=== PATIENT | female | born 1950 | race Caucasian/White ===

== ENCOUNTER 2020-12-28 06:05 | Observation (INO) ==
--- NOTE | 2020-12-04 14:58 | PAT Medication Instructions ---
Medication Instructions Date of Service December 04, 2020 Home Medications lisinopril 10 mg tablet (Zestril) 10 mg PO HS phenobarbital 32.4 mg tablet 32.4 mg PO QPM phenytoin sodium extended 100 mg capsule (Dilantin Extended) 100 mg PO HS quetiapine 25 mg tablet (Seroquel) 25 mg PO HS sertraline 20 mg/mL oral concentrate (Zoloft) 100 mg PO QAM acetaminophen 325 mg capsule (Tylenol) 650 mg PO QID PRN glucosamine-chondroitin 250 mg-200 mg tablet (Osteo Bi-Flex) 1 tab PO BID hydrocodone 5 mg-acetaminophen 325 mg tablet 1 tab PO Q6H PRN menthol 6 % topical pump spray (Stopain) 1 spray TOPICAL QID PRN omeprazole 20 mg capsule,delayed release 20 mg PO QAM STOP taking 2 weeks before surgery (or as soon as possible if surgery is within 2 weeks) glucosamine-chondroitin 250 mg-200 mg tablet (Osteo Bi-Flex) 1 tab PO BID STOP taking 24 hours before surgery menthol 6 % topical pump spray (Stopain) 1 spray TOPICAL QID PRN Take morning of surgery With a small sip of water, OTHERWISE NOTHING TO EAT OR DRINK AFTER MIDNIGHT: sertraline 20 mg/mL oral concentrate (Zoloft) 100 mg PO QAM acetaminophen 325 mg capsule (Tylenol) 650 mg PO QID PRN (okay to take up to 4 hours prior to surgery if needed) hydrocodone 5 mg-acetaminophen 325 mg tablet 1 tab PO Q6H PRN (okay to take up to 4 hours prior to surgery if needed) omeprazole 20 mg capsule,delayed release 20 mg PO QAM Take evening before surgery lisinopril 10 mg tablet (Zestril) 10 mg PO HS phenobarbital 32.4 mg tablet 32.4 mg PO QPM phenytoin sodium extended 100 mg capsule (Dilantin Extended) 100 mg PO HS quetiapine 25 mg tablet (Seroquel) 25 mg PO HS acetaminophen 325 mg capsule (Tylenol) 650 mg PO QID PRN (if needed) hydrocodone 5 mg-acetaminophen 325 mg tablet 1 tab PO Q6H PRN (if needed) Other Notes If you have any questions please call us at [phone] or [phone] or [phone] or [phone]
--- NOTE | 2020-12-06 13:28 | Anesthesiology Consultation ---
Date of Service December 06, 2020 Assessment & Plan (1) Encounter for pre-operative examination: Chart Review Chart Review: Acceptable Risk for Surgery (pending preop Covid testing ) and Patient seen in Pre Admission Testing Per [facility] appt on 12/06/20, patient denies any travel or large group activities. Patient wears mask in public. No known Covid infection in the past 90 days. Patient is vaccinated for Covid. No known Covid positive contacts or Covid related symptoms. Preop Covid testing scheduled 12/26/20= will await results. Educated on importance of self quarantining, social distancing and wearing mask in public both for the patient after Covid testing done Teaching & Discussion Pre-Anesthesia Teaching/Discussion Notes: Instructed NPO after midnight before surgery,except medications with 15 cc of water. Medication instructions provided according to the [facility] guidelines. History Surgery Operation Date: 12/28/20 10:20 Proposed Procedures p Left Anterior Total Hip Arthroplasty - Dominik Chase DO Height/Weight Height: 5 ft 3 in Weight: 66.8 kg Allergies Allergy/AdvReac Type Severity Reaction Status Date / Time Penicillins Allergy Intermediate rash Verified 11/30/20 10:30 mesalamine [From Asacol] AdvReac Intermediate caused Verified 11/30/20 10:30 worsening ulcerative colitis Medications Home Medications Medication Instructions Recorded Confirmed Last Taken lisinopril 10 mg tablet (Zestril) 10 mg PO HS 11/13/20 11/30/20 Unknown phenobarbital 32.4 mg tablet 32.4 mg PO QPM 11/13/20 11/30/20 Unknown phenytoin sodium extended 100 mg 100 mg PO HS cap 11/13/20 11/30/20 Unknown capsule (Dilantin Extended) quetiapine 25 mg tablet (Seroquel) 25 mg PO HS 11/13/20 11/30/20 Unknown sertraline 20 mg/mL oral 100 mg PO QAM ml 11/13/20 11/30/20 Unknown concentrate (Zoloft) acetaminophen 325 mg capsule 650 mg PO QID PRN 11/30/20 11/30/20 Unknown (Tylenol) glucosamine-chondroitin 250 mg-200 1 tab PO BID 11/30/20 11/30/20 Unknown mg tablet (Osteo Bi-Flex) hydrocodone 5 mg-acetaminophen 325 1 tab PO Q6H PRN 11/30/20 11/30/20 Unknown mg tablet menthol 6 % topical pump spray 1 spray TOPICAL QID PRN 11/30/20 11/30/20 Unknown (Stopain) omeprazole 20 mg capsule,delayed 20 mg PO QAM 11/30/20 11/30/20 Unknown release Past Medical History Medical History Depression GERD (gastroesophageal reflux disease) Well controlled and stable Hypertension Osteoarthritis Seizure LAST ONE 01/05/1985-([facility] AND [facility] MAL)-F/U PCP Ulcerative colitis Under good control Exercise / Class Metabolic Activity II 4-5 Yardwork/Stairs/Walk up hill (one flight of stairs - no chest pain or SOB ) Past Family History Family History Son Family history of diabetes mellitus Sister Family history of diabetes mellitus Sister Family history of diabetes mellitus Past Surgical History Surgical History History of colonoscopy History of esophagogastroduodenoscopy (EGD) History of hysterectomy TOTAL History of tonsillectomy Past Anesthesia History No Hx of Anesthesia Complications and No Family Hx of Anesthesia Complications History of PONV No Hx of PONV and No Hx of Motion Sickness Social History Smoking Status: Never smoker Do You Dip or Chew Tobacco: No Hx Alcohol Use: No Hx Substance Use: No substance use type: does not use Review of Systems Patient denies chest pain, shortness of breath, dyspnea on exertion, cough, wheezing, palpitations. No hx of stroke, ME, apnea/snoring. No hx of blood clots or blood transfusions Physical Exam Vital Signs VITALS BP 138/72 (manually) P 84 TEMP 98.5 SP02 97% RESP 16 Constitutional no acute distress ENMT Mouth: no TMJ clicking Thyromental Distance: < 3.5 Finger Breadths (3.0) Mallampati Class: II Neck + limited neck extension (mild ) Respiratory normal respiratory effort; no respiratory distress Auscultation: lungs clear to auscultation bilaterally; no wheezes Cardiovascular Rate/Rhythm: regular rate and regular rhythm Heart Sounds: no murmur Vessels: no carotid bruit Musculoskeletal Spine: no pain with cervical ROM Extremities: extremities normal to inspection Psychiatric Orientation: alert Lab Results Anesthesia Preop Results Results Anesthesia Widget: WBC 6.53 K/uL (4.8-10.8) 12/06/20 Hgb 13.9 g/dL (12.0-16.0) 12/06/20 Hct 39.2 % (37-47) 12/06/20 Plt 137 K/uL (130-400) 12/06/20 Na 138 mmol/L (136-145) 12/06/20 K 4.7 mmol/L (3.5-5.1) 12/06/20 Cl 108 mmol/L (98-107) H 12/06/20 CO2 26 mmol/L (21-32) 12/06/20 BUN 16 mg/dl (7-18) 12/06/20 Creat 0.69 mg/dl (0.6-1.2) 12/06/20 Glucose Level 78 mg/dl (70-99) 12/06/20 PT 11.0 Seconds (9.0-12.0) 12/06/20 PTT 22.5 Seconds (21.0-31.0) 12/06/20 INR 1.1 (0.9-1.1) 12/06/20 Blood Type O Positive 12/06/20 Antibody Screen NEGATIVE 12/06/20 Testing Electrocardiogram Date: 12/06/20 Findings: + NSR @ (77bpm) Normal EKG per cardio. Chest X-Ray Date: 12/06/20 Findings: + NAD Cardiomediastinal and hilar silhouettes are within normal limits. Calcified plaque the thoracic aorta. Hiatal hernia. No pneumothorax, pleural effusion, airspace consolidation or overt pulmonary edema. Mild biapical pleural- parenchymal scarring. Degenerative changes of the shoulders and spine. Sigmoidal thoracolumbar scoliosis.
--- NOTE | 2020-12-27 16:44 | History & Physical Report ---
Date of Service December 27, 2020 Assessment & Plan (1) Osteoarthritis of left hip: We will proceed with a left anterior hip replacement. Postoperatively she will be started on aspirin for DVT prophylaxis and kept overnight in the hospital for postoperative medical management. She plans to go to [facility] in [place] upon discharge. History of Present Illness Chief Complaint: Osteoarthritis of the left hip. Primary Care Provider: Isaiah Tamayo is a pleasant 70-year-old female who is been dealing with chronic increasing left hip and groin pain. X-rays and clinical examination been diagnostic for advanced osteoarthritis of the left hip. After failing conservative treatment, she has elected proceed with a left anterior hip replacement surgery.. Allergies Allergy/AdvReac Type Severity Reaction Status Date / Time Penicillins Allergy Intermediate rash Verified 11/30/20 10:30 mesalamine [From Asacol] AdvReac Intermediate caused Verified 11/30/20 10:30 worsening ulcerative colitis Home Medications Medication Instructions Recorded Confirmed Type lisinopril 10 mg tablet (Zestril) 10 mg PO HS 11/13/20 11/30/20 History phenobarbital 32.4 mg tablet 32.4 mg PO QPM 11/13/20 11/30/20 History phenytoin sodium extended 100 mg 100 mg PO HS cap 11/13/20 11/30/20 History capsule (Dilantin Extended) quetiapine 25 mg tablet (Seroquel) 25 mg PO HS 11/13/20 11/30/20 History sertraline 20 mg/mL oral 100 mg PO QAM ml 11/13/20 11/30/20 History concentrate (Zoloft) acetaminophen 325 mg capsule 650 mg PO QID PRN 11/30/20 11/30/20 History (Tylenol) glucosamine-chondroitin 250 mg-200 1 tab PO BID 11/30/20 11/30/20 History mg tablet (Osteo Bi-Flex) hydrocodone 5 mg-acetaminophen 325 1 tab PO Q6H PRN 11/30/20 11/30/20 History mg tablet menthol 6 % topical pump spray 1 spray TOPICAL QID PRN 11/30/20 11/30/20 History (Stopain) omeprazole 20 mg capsule,delayed 20 mg PO QAM 11/30/20 11/30/20 History release Past Med/Surg History Medical History Depression GERD (gastroesophageal reflux disease) Well controlled and stable Hypertension Osteoarthritis Seizure LAST ONE 01/05/1985-([facility] AND [facility] MAL)-F/U PCP Ulcerative colitis Under good control Surgical History History of colonoscopy History of esophagogastroduodenoscopy (EGD) History of hysterectomy TOTAL History of tonsillectomy Family History Son Family history of diabetes mellitus Sister Family history of diabetes mellitus Sister Family history of diabetes mellitus Social History Smoking Status: Never smoker Second Hand Exposure: Yes (SON USED TO SMOKE/MOTHER SMOKED); Hx Alcohol Use: No Hx Substance Use: No Preferred Language: Ukrainian Communication Ability: Effective Educational Audiologist Required: No Beliefs That Will Affect Care: None Current Living Situation: Spouse and Family current occupational status: retired Feels Safe at Home: Yes Assistive Devices: Cane and Glasses Review of Systems All systems reviewed & are unremarkable except as noted in HPI & below. Physical Exam On physical examination of the left hip, she has severe pain with range of motion of her hip. She has a very antalgic gait and uses a cane. Her left leg is shorter than her right.. Constitutional WD/WN, vitals as above Eyes PERRL, conjunctivae normal, anicteric sclerae ENMT external ear and nose normal, oropharynx normal Neck trachea midline, no thyromegaly Respiratory normal respiratory effort Cardiovascular RRR, no murmur, no edema Gastrointestinal (Abdomen) normal bowel sounds, soft, nontender, no hepatosplenomegaly Psychiatric A+Ox3, euthymic affect Results & Data Results & Data Laboratory Results . Diagnostic Findings X-rays of the left hip do show advanced osteoarthritis with joint space narrowing, osteophyte formation, and [id number] articulation. There is complete collapse of the femoral head.. PG Care Time/CCT Total # of Minutes Spent Total Time Spent with Patient: Total time spent is greater than 50% in coordination of care (as documented) at patient's floor/unit and/or counseling patient: Coding Level of Care Code None Diagnoses Osteoarthritis of left hip M16.12
[~2020-12-28 06:05] MED LIST: ACETAMINOPHEN 500 MG TAB PO SCH; FAMOTIDINE 20 MG TAB PO SCH; GABAPENTIN 300 MG CAP PO SCH; LR 500ML BOLUS, THEN 15ML/HR IV SCH; LR 60ML/HR IV SCH; ROPIVACAINE 0.5% HCL/PF 150 MG, BUPIVACAINE 0.75% MPF 20 ML, EPINEPHrine 30MG/30ML (OR ... INSTIL SCH; TRANEXAMIC ACID 1,000 MG **IV Intra-op IV SCH; TRANEXAMIC ACID 1,000 MG **IV Pre-op IV SCH; ceFAZolin 1000MG 1,000 MG/7.5 ML SYR IV SCH; dexAMETHasone 4 MG TAB PO SCH
--- NOTE | 2020-12-28 06:44 | History & Physical Bridge Note ---
Date of Service December 28, 2020 History & Physical Bridge Note I have examined the patient, reviewed the History & Physical and in the interval since the performance of the History & Physical I have noted the following changes of clinical significance: no changes noted
[2020-12-28] MEDS ORDERED: fentaNYL citrate 100 MCG/2 ML VIAL IV PRN (07:04)
[2020-12-28] MEDS ORDERED: ePHEDrine sulfate 50 MG/ML AMP IV PRN (07:04)
[2020-12-28] MEDS ORDERED: ATROPINE SULFATE 0.1 MG/ML 10ML SYR IV PRN (07:04)
[2020-12-28] MEDS ORDERED: ONDANSETRON INJ 2 MG/ML 2 ML VIAL IV PRN ×2 (07:04→12:21)
[2020-12-28] MEDS ORDERED: BUPIVACAINE 0.5 % 5 MG/1 ML PF 10ML VIAL ONE (07:16)
[2020-12-28] MEDS ORDERED: MIDAZOLAM HCL 1 MG/ML 2ML VIAL ONE ×2 (07:24)
[2020-12-28] MEDS ORDERED: LIDOCAINE 2% 2 ML VIAL/AMP(20MG/ML) INFIL ONE (07:25)
[2020-12-28] MEDS ORDERED: PROPOFOL IV EMULSION 10 MG/ML 20 ML VIAL IV ONE ×2 (07:25→10:17)
[2020-12-28] MEDS ORDERED: ORTHO JOINT ANESTHETIC ONE (08:29)
[2020-12-28] MEDS ORDERED: PHENYLEPHRINE HCL 10 MG/ML VIAL ONE (10:03)
[2020-12-28] MEDS ORDERED: PHENYLEPHRINE 100MCG/ML 5ML SYR ONE (10:03)
[2020-12-28] MEDS ORDERED: ePHEDrine sulfate 50 MG/ML SYR ONE (10:17)
--- NOTE | 2020-12-28 10:31 | Operative Report ---
PG Post Operative Report Pre & Post Diagnosis Operation Date: 12/28/20 08:30 Pre-Op Diagnosis: Degenerative Joint Disease Left Hip Post-Op Diagnosis: Degenerative Joint Disease Left Hip I identified the patient and participated in the time-out.: Yes Procedure Operation Date: 12/28/20 08:30 Actual Procedures p Left Anterior Total Hip Arthroplasty, Uncemented(Left) - Dominik Chase DO Surgeon Dominik Chase, Blueprint Machine Operator Dominik Donaldson PAC Estimated Blood Loss 200 Findings Consistent with Post-Op Diagnosis Specimens Left femoral head Complications none Disposition Disposition: Recovery Room Indications Belkis is a pleasant 70-year-old female who is been dealing with chronic increasing left hip and groin pain. X-rays and clinical examination are diagnostic for advanced osteoarthritis the left hip with complete collapse of the femoral head. After failing conservative treatment, she elected proceed with a left total hip arthroplasty. Description of Procedure Implants used I used a ZimmerBiomet total hip arthroplasty system with a size 0 high offset Avenir Complete stem, a 48 mm Osseoti cup with a 25mm screw and a 30 mm screw, an E1 polyethylene liner, a 32 mm ceramic head with a +7 neck. Belkis arrived at the hospital for the above procedure. She was seen in the preoperative holding area and the operative extremity was identified and signed. She was given a spinal anesthetic, a preoperative antibiotic, and TXA. She was then taken back to the operating room and laid on the table in the supine position. She was given basic sedation. The operative leg was secured to a Puristst leg positioner. The hip was then prepped and draped in sterile fashion. A timeout was done and the patient and the operative extremity was properly identified. An anterior approach was used. Dissection was taken down through the fascia and the tensor muscle belly was retracted laterally and the rectus was retracted medially. The circumflex vessels were identified and ligated. The capsule was then incised and tagged for later repair. The femoral neck was then cut and the femoral head was removed. The acetabulum was exposed. Time was spent doing a complete circumferential labral release. Sequential reaming of the acetabulum up to a size 47 reamer was done. Final reamings were done under fluoroscopy to ensure appropriate version. A Biomet 48 mm Osseoti cup was then impacted into place. I was not able to get a great press-fit. I got a very mild press-fit. At this point I decided to place 2 screws. A 30 mm and a 25 mm screw were placed. I was able to get excellent purchase with the screws. The E1 polyethylene liner was then snapped into place. Surrounding soft tissues were then injected with 100 cc of an orthopedic pain control cocktail. The proximal femur was then exposed. Sequential broaching up to a size 0 broach was done. Off that broach a size 32 head with a +7 neck was trialed. The hip was reduced and fluoroscopic images showed anatomic alignment of the implants in acceptable length. The broach was removed. The final size 0 Avenir Complete stem was then impacted into place. A ceramic 32 mm head with a +7 neck was then impacted onto the stem and the hip was reduced. Final fluoroscopic images showed anatomic alignment of the hip. The capsule was then closed with #1 Vicryl suture. A dilute betadyne lavage was then done for 3 minutes. The joint was then irrigated with normal saline solution. The fascia was closed with #1 PDS suture. Skin was closed with 2-0 Vicryl, ariel, and a Silverlon dressing. She was then transferred to a hospital bed and taken to the post anesthesia care unit in stable condition. She tolerated the procedure well. Dominik Donaldson PA-C, was present for the entire procedure. He was critical for patient positioning, prepping, draping, retraction exposure, wound closure and application of sterile dressing. I attest to the content of the Intraoperative Record and any orders documented therein. Any exceptions are noted below.
--- NOTE | 2020-12-28 10:50 | Fluoroscopy Report ---
FL hip LT 1V CLINICAL HISTORY: Left anterior total hip arthroplasty. COMPARISON STUDY: None. FLUOROSCOPY TIME: 52 seconds. FINDINGS: 2 fluoroscopic spot images of the left hip demonstrate a left total hip arthroplasty. The h ardware appears intact. No fracture or dislocation. IMPRESSION: Fluoroscopy provided for left total hip arthroplasty. ACT 112: Negative or not required by law. Electronically signed by: Tomasz Perez M.D. 12/28/2020 10:49 AM
--- NOTE | 2020-12-28 11:47 | XRay Report ---
AP PELVIS, CROSSTABLE LATERAL LEFT HIP History: Left total hip arthroplasty. Degenerative arthritis. Postop. FINDINGS: The patient is status post a left total hip arthroplasty. The hardware is intact. No fractu re or dislocation. Skin ariel are in place. IMPRESSION: Left total hip arthroplasty. No evidence for hardware complication. ACT 112: Negative or not required by law. Electronically signed by: Tomasz Perez M.D. 12/28/2020 11:45 AM
[2020-12-28] MEDS ORDERED: bisacodyL 10 MG SUPP PR PRN (12:21)
[2020-12-28] MEDS ORDERED: HYDROmorphone INJ 0.5 MG/0.5 ML SYR IV PRN (12:21)
[2020-12-28] MEDS ORDERED: MAGNESIUM HYDROXIDE SUSP 30 ML UDC PO PRN (12:21)
[2020-12-28] MEDS ORDERED: oxyCODONE HCL IR 5 MG TAB (IMMEDIATE RELEASE) PO PRN (12:21)
[2020-12-28] MEDS ORDERED: NALOXONE HCL 0.4 MG/1 ML VIAL/CARP IV PRN (12:21)
[2020-12-28] MEDS ORDERED: METOCLOPRAMIDE HCL INJ 5 MG/ML 2 ML VIAL IV PRN (12:21)
[2020-12-28] MEDS ORDERED: [UNRECOGNIZED DRUG - REMARK] TOP PRN (12:21)
[2020-12-28] MEDS: SODIUM CHLORIDE 0.9% 1000ML 1,000 ML IV SCH ×2 (13:06→23:32)
[2020-12-28] MEDS: KETOROLAC TROMETHAMINE 15 MG/ML VIAL IV SCH ×3 (13:06→23:38)
--- NOTE | 2020-12-28 13:53 | Anesthesiology Progress Note ---
Date of Service December 28, 2020 Anesthesia Post Procedure Vital Signs Vital Signs: Temp Pulse Pulse Resp BP Pulse Ox 12/28/20 12:59 97.3 F L 87 16 94/59 L 96 12/28/20 12:24 97.3 F L 90 18 100/61 97 12/28/20 11:55 97.7 F 90 16 94/59 L 94 12/28/20 11:45 90 17 92/46 L 95 12/28/20 11:35 86 17 102/46 L 95 12/28/20 11:25 97.7 F 90 17 99/50 L 94 12/28/20 11:15 97 H 15 98/49 L 96 12/28/20 11:05 90 19 103/47 L 94 12/28/20 10:55 100 H 15 92/47 L 96 12/28/20 10:45 98.8 F 78 16 132/56 L 97 12/28/20 06:39 98.2 F 85 18 131/71 98 Pain Intensity Left Hip: Pain Intensity: 0 Transfer of Care Handoff Completed per policy Notes Mental Status: alert / awake / arousable and participated in evaluation Patient Amnestic to Procedure: Yes Nausea / Vomiting: adequately controlled Pain: adequately controlled Airway Patency, RR, SpO2: stable & adequate BP & HR: stable & adequate Hydration State: stable & adequate Neuraxial Anesthesia: was administered and sensory block is resolving Anesthetic Complications: no major complications apparent and Pt Satisfied with anesthetic care
[2020-12-28] MEDS: ACETAMINOPHEN 500 MG TAB PO SCH ×2 (16:01→23:39)
[2020-12-28] MEDS: ceFAZolin 2000MG 2,000 MG/15 ML SYR IV SCH (19:19)
[2020-12-28] MEDS: ASPIRIN 81 MG ECTAB PO SCH (20:25)
[2020-12-28] MEDS: SENNA 8.6 MG TAB PO SCH (20:25)
[2020-12-28] MEDS: lisinopril 10 MG TAB PO SCH (20:26)
[2020-12-28] MEDS: QUEtiapine FUMARATE 25 MG TABLET PO SCH (20:26)
[2020-12-28] MEDS: DOCUSATE SODIUM 100 MG CAP PO SCH (20:26)
[2020-12-28] MEDS: PHENYTOIN SODIUM ER 100 MG CAP PO SCH (20:26)
[2020-12-29] MEDS: ceFAZolin 2000MG 2,000 MG/15 ML SYR IV SCH (04:23)
[2020-12-29] MEDS: KETOROLAC TROMETHAMINE 15 MG/ML VIAL IV SCH ×4 (05:11→23:23)
--- NOTE | 2020-12-29 07:47 | Orthopedic Progress Note ---
Date of Service December 29, 2020 Assessment & Plan (1) Status post left hip replacement: Overall she is doing fairly well. She is on aspirin for DVT prophylaxis. She will be seen by physical therapy today for ambulation and range of motion exercises. We will keep her in the hospital today for pain control and therapy. I will see her tomorrow morning and plan to send her home tomorrow. Subjective Belkis was seen and examined at bedside this morning. Overall she is doing very well. She is not having much pain in the left hip. She has been up and ambulating a little bit to the bathroom. She has no other complaints.. Review of Systems All systems reviewed & are unremarkable except as noted in HPI & below. Physical Exam On physical examination of the left hip, the dressing is clean and dry. Her leg lengths are equal. She has active dorsiflexion plantarflexion of her left ankle.. Results & Data Results & Data Laboratory Results . Diagnostic Findings Postoperative x-rays of the left hip show the prosthesis to be in anatomic alignment without any evidence of fracture, dislocation, or loosening. PG Care Time/CCT Total # of Minutes Spent Total Time Spent with Patient: Total time spent is greater than 50% in coordination of care (as documented) at patient's floor/unit and/or counseling patient: Coding Level of Care Code 79594 Post Operative Follow-Up Diagnoses Status post left hip replacement Z96.642
[2020-12-29] MEDS ORDERED: dexAMETHasone 4 MG TAB PO SCH (08:00)
[2020-12-29] MEDS: ACETAMINOPHEN 500 MG TAB PO SCH ×3 (08:21→23:22)
[2020-12-29] MEDS: MULTIVITAMIN TAB PO SCH (08:22)
[2020-12-29] MEDS: DOCUSATE SODIUM 100 MG CAP PO SCH ×2 (08:22→20:50)
[2020-12-29] MEDS: PANTOprazole 40 MG TAB PO SCH (08:22)
[2020-12-29] MEDS: SERTRALINE HCL 100 MG TABLET PO SCH (08:22)
[2020-12-29] MEDS: ASPIRIN 81 MG ECTAB PO SCH ×2 (08:22→20:50)
[2020-12-29] MEDS: lisinopril 10 MG TAB PO SCH (20:50)
[2020-12-29] MEDS: PHENYTOIN SODIUM ER 100 MG CAP PO SCH (20:51)
[2020-12-29] MEDS: SENNA 8.6 MG TAB PO SCH (20:51)
[2020-12-29] MEDS: QUEtiapine FUMARATE 25 MG TABLET PO SCH (21:03)
[2020-12-30] MEDS: KETOROLAC TROMETHAMINE 15 MG/ML VIAL IV SCH (05:34)
[2020-12-30 07:41] VITALS: BP 112/65; PULSE 85; TEMP 97.5; O2SAT 99
[2020-12-30] MEDS: DOCUSATE SODIUM 100 MG CAP PO SCH (07:57)
[2020-12-30] MEDS: ASPIRIN 81 MG ECTAB PO SCH (07:57)
[2020-12-30] MEDS: ACETAMINOPHEN 500 MG TAB PO SCH (07:57)
[2020-12-30] MEDS: SERTRALINE HCL 100 MG TABLET PO SCH (07:57)
[2020-12-30] MEDS: PANTOprazole 40 MG TAB PO SCH (07:57)
[2020-12-30] MEDS: MULTIVITAMIN TAB PO SCH (07:57)
--- NOTE | 2020-12-30 08:05 | Orthopedic Progress Note ---
Date of Service December 30, 2020 Assessment & Plan (1) Status post left hip replacement: Overall she doing very well. She denies any much pain in the left hip. She can be seen by physical therapy today for ambulation and range of motion exercises. She can be discharged to home later today. She will follow-up with orthopedics in 2 weeks. Kristi Tamayo was seen and examined at bedside this morning. Overall she doing very well. She says she is not having much pain in the left hip. She participated well yesterday with physical therapy. She has no complaints.. Review of Systems All systems reviewed & are unremarkable except as noted in HPI & below. Physical Exam On physical examination of her left hip, her leg lengths are equal. Her dressing is clean and dry. She is neurovascularly intact.. Results & Data Results & Data Laboratory Results . Diagnostic Findings . PG Care Time/CCT Total # of Minutes Spent Total Time Spent with Patient: Total time spent is greater than 50% in coordination of care (as documented) at patient's floor/unit and/or counseling patient: Coding Level of Care Code 87553 Post Operative Follow-Up Diagnoses Status post left hip replacement Z96.642
--- NOTE | 2020-12-30 08:07 | Discharge Summary ---
Date of Service December 30, 2020 Admission HPI (Per Admitting) Belkis is a pleasant 70-year-old female who is been dealing with chronic increasing left hip and groin pain. X-rays and clinical examination been diagnostic for advanced osteoarthritis of the left hip. After failing conservative treatment, she has elected proceed with a left anterior hip replacement surgery.. Admission Exam (Per Admitting) On physical examination of the left hip, she has severe pain with range of motion of her hip. She has a very antalgic gait and uses a cane. Her left leg is shorter than her right.. Principal Diagnosis Same as "Discharge Diagnosis" noted below under Discharge Instructions. Discharge Data Procedures Performed Operation Date: 12/28/20 08:30 Actual Procedures p Left Anterior Total Hip Arthroplasty, Uncemented(Left) - Dominik Chase DO Ordered Studies 12/28/20 08:30 FL hip LT 1V Routine Hospital Course (1) Status post left hip replacement: On December 28, 2020 Heidi arrived at [facility] and underwent a left hip replacement without complication. She had a spinal anesthetic. Postoperatively she was started on aspirin for DVT prophylaxis and transferred to the general orthopedic floors. Her hospital course was uneventful. On postop day #1 her vital signs were stable and her pain was well controlled. She was able to participate well with physical therapy doing ambulation and range of motion exercises. On postop day #2 she continued to do well. She was seen 1 more time by physical therapy. She was then discharged home. She will follow-up with orthopedics in 2 weeks. PG Care Time/CCT Total # of Minutes Spent Total Time Spent with Patient: Total time spent is greater than 50% in coordination of care (as documented) at patient's floor/unit and/or counseling patient: Discharge Plan Discharge Items Patient Disposition: Home - Home Health Services Reason For Visit: DJD Left Hip Discharge Diagnosis: Left hip replacement Activity: As commented below Non-emergency contact: Surgeon Call non-emergency contact if: your wound has increased redness and your wound has increased drainage Follow-up/Referrals: Isaiah Gudino [Primary Care Provider] - Diet: Regular Addtl Attending Provider Instructions: Activity and Therapy Recommendations: * If you are using [facility] then therapy will be provided at your home until they feel you have accomplished all of your goals. * If you are using [facility] then Physical Therapy will be provided until they feel you are ready to start Outpatient Physical Therapy. * If you are not using home therapy then Outpatient Physical Therapy should start about 3-5 days from your day of surgery. Therapy will last about 6-10 weeks * You were shown a series of exercises in the hospital. Do these exercises three times each day including the exercises you were shown in physical therapy. * Get up and walk several times each day.~ For the first four weeks, try not to stand or walk for more than one hour at a time. If you do stand or walk for more than one hour, you will not hurt anything, but your leg will likely swell.~~ * As you feel comfortable, you may change from the walker or crutches to a cane and~then to independent walking. Medications: * Narcotic You will likely be sent home from the hospital with a prescription for the narcotic pain medication that worked best throughout your stay. * Aspirin Most patients will be required to take Aspirin 81mg twice a day for 6 weeks after surgery. This is obtained [id number] and a prescription is not necessary. * Other medications may be prescribed for specific circumstances. If you have any questions, please call the office at . * Resume previous home medications unless otherwise instructed TEDs/Elastic Stockings: The white elastic stockings help limit swelling and prevent blood clots from forming in your legs. The more you wear them, the more they work. Wear them for six weeks. Dressing Care: Leave the Silverlon dressing in place for 7 days. After 7 days you may remove the dressing. If the incision is not draining then you may leave the ariel open to air. If there is a little bit of drainage or if the ariel are getting stuck on your clothing then cover the incision with a dry dressing. The ariel will be removed at your 2 week follow-up appointment. Showering: You may shower with the Silverlon dressing in place. Do not let the shower spray hit the dressing directly. Pat the Silverlon dressing dry. If the dressing becomes wet underneath, then simply remove the dressing. Keep the incision dry until you are 7 days out from the day of surgery. After 7 days you may remove the Silverlon dressing and shower with the ariel exposed. Let soapy water run over the ariel and pat them dry. Do not scrub or soak the incision. Things To Watch For: * Drainage from the incision site that occurs more than one week after your surgery. * Increased redness at the incision site. * Fever above 102 degrees Fahrenheit. * Unusual chest pain or shortness of breath. * Call [facility] at with any of the above problems Follow-Up Visit: Follow-up with Dr. Chase's PA (Dominik Donaldson) 2-3 weeks after your day of surgery. He will remove your ariel and answer any questions. If you have any additional questions or concerns, Dr Chase is usually in the office at the same time and will be available An appointment was probably scheduled when you signed-up for surgery in the office. If you have any questions call Office Instructions: More detailed instructions as well as Frequently Asked Questions were provided in a folder by our office when you signed-up for surgery. Please review these instructions when you get home. If you have any further questions or concerns, please feel free to call the office at [phone] Pending Studies at Discharge: No Stand-Alone Forms: [facility], Smoking Cessation Medications and DC Order Prescriptions: New aspirin 81 mg Tablet,Delayed Release (Dr/Ec) 81 mg PO BID Qty: 0 RF: 0 Continued sertraline [Zoloft] 20 mg/mL concentrate 100 mg PO QAM RF: 0 quetiapine [Seroquel] 25 mg tablet 25 mg PO HS RF: 0 phenobarbital 32.4 mg tablet 32.4 mg PO QPM RF: 0 phenytoin sodium extended [Dilantin Extended] 100 mg capsule 100 mg PO HS RF: 0 lisinopril [Zestril] 10 mg tablet 10 mg PO HS RF: 0 hydrocodone-acetaminophen 5-325 mg Tablet 1 tab PO Q6H PRN (Reason: Pain) RF: 0 glucosamine-chondroitin [Osteo Bi-Flex] 250-200 mg Tablet 1 tab PO BID RF: 0 acetaminophen [Tylenol] 325 mg Capsule 650 mg PO QID PRN (Reason: Pain) RF: 0 Stopain 6 % [place],Non-Aerosol 1 spray TOPICAL QID PRN (Reason: Pain) RF: 0 omeprazole 20 mg Capsule,Delayed Release(Dr/Ec) 20 mg PO QAM RF: 0 Discharge Orders: Discharge Order (Routine); Ordered 12/30/20 Ordered By: Dominik Chase Admission Data Admit Date/Time: 12/28/20 10:47 Attending Provider: Dominik Chase Admit Provider: Dominik Chase Primary Care Provider: Isaiah Gudino
== END 2020-12-30 12:25 | disposition home health service (06) ==
LOC: ASU 06:05 → 3E 06:05